=== PATIENT | male | born 1980 | race Caucasian/White ===

== ENCOUNTER 2019-12-19 12:58 | Emergency (ER) | payer BC ==
[2019-12-19 13:27] VITALS: BP 122/80
--- NOTE | 2019-12-19 14:07 | UC ---
Complaint Male HPI - HPI Summary HPI Summary: 39 yo man with history of "shy bladder", being evaluated by Dr. Warner. Recent normal cystoscopy aside from mild BPH and use of low dose cialis was recommended, which he declined at the time. apparetnly he does have a residual urine, but he does not know how significant an issue this is. While away this past week visiting the family of his , he found that his symptoms were much more severe, with considerable discomfort due to his inability to pass urine. He does not have dysuria, but does have some bladder pressure. He has not had a fever. Occasionally uses benadryl for sleep and we discussed that use could exacerbate the problem. No history of renal stones. Reviewed that today's urine does not show evidence of infection, and he is concerne due to upcoming week of travel. 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 - here with his Onset/Duration: Gradual Onset, Lasting Weeks Timing: Intermittent, Lasting Minutes Severity Initially: Moderate Severity Currently: Moderate Pain Intensity: 2 Location: Suprapubic Aggravating Factor(s): Straining Alleviating Factor(s): Nothing - Risk Factors Testicular Torsion: Negative - Allergies/Home Medications Allergies/Adverse Reactions: Allergies Allergy/AdvReac Type Severity Reaction Status Date / Time No Known Allergies Allergy Verified 12/19/19 13:27 Home Medications: Home Medications Multivitamin [Multivitamins] 1 cap PO DAILY 12/28/13 [History Confirmed 12/19/19 ] Bacillus Coagulans [Ra Probiotic Gummies] 1 chw PO DAILY 05/29/18 [History Confirmed 12/19/19] Ibuprofen TAB* [Motrin TAB* 400 MG] 400 mg PO Q6H PRN 05/29/18 [History Confirmed 12/19/19] Melatonin [Meladox] 3 - 10 mg PO BEDTIME PRN 05/29/18 [History Confirmed ] diPHENhydraMINE PO* [Benadryl PO 50 MG CAP*] 50 mg PO BEDTIME PRN 05/29/18 [ History Confirmed 12/19/19] Acetaminophen TAB* [Tylenol TAB*] 975 mg PO Q6H PRN 12/19/19 [History Confirmed 12/19/19] Methylcellulose [Fiber Therapy] 500 mg PO TID 12/19/19 [History Confirmed ] Sulfamethox/Trimethoprim DS* [Bactrim DS 800/160 TAB*] 1 tab PO BID #14 tab 11/08 [Rx] Tadalafil [Cialis] 5 mg PO DAILY #14 tab 12/19/19 [Rx] PMH/Surg Hx/FS Hx/Imm Hx - Additional Past Medical History Additional PMH: HPV with hx of perianal condyloma Previously Healthy: Yes Psychological History: Anxiety - history of OCD - Surgical History Surgical History: Yes Surgery Procedure, Year, and Place: Anal surgery. RIGHT KNEE SCOPING - Family History Known Family History: Positive: Other - NO hx of CA prostate or bladder concerns - Social History Occupation: Employed Full-time Lives: With Family Alcohol Use: None Substance Use Type: None Smoking Status (MU): Never Smoked Tobacco Have You Smoked in the Last Year: No Review of Systems All Other Systems Reviewed And Are Negative: Yes Constitutional: Positive: Negative Skin: Positive: Negative Eyes: Positive: Negative ENT: Positive: Negative Respiratory: Positive: Negative Cardiovascular: Positive: Other - no hx of hypotension or cardiovascular disease. Genitourinary: Positive: Urgency, Other - low pelvic pain Motor: Positive: Negative Neurovascular: Positive: Negative Musculoskeletal: Positive: Negative Neurological/Mental Status: Positive: Negative Psychological: Positive: Anxious - hx of anxiety and OCD, without a good response to SSRI's in the past Is Patient Immunocompromised?: No Physical Exam Triage Information Reviewed: Yes Appearance: Well-Appearing, No Pain Distress Vital Signs: Initial Vital Signs Temp 98.0 F 12/19/19 13:21 Pulse 72 12/19/19 13:21 Resp 16 12/19/19 13:21 BP 122/80 12/19/19 13:21 Pulse Ox 100 12/19/19 13:21 ENT: Positive: Normal ENT inspection Neck: Positive: Supple, Nontender, No Lymphadenopathy Respiratory: Positive: Lungs clear Cardiovascular: Positive: RRR Abdomen Description: Positive: Nontender, No Organomegaly, Soft, Other: - mild tenderness suprapubic area. Negative: CVA Tenderness (R), CVA Tenderness (L), Distended, Guarding Musculoskeletal Exam: Normal Neurological Exam: Normal Psychological Exam: Other - anxious mood and affect Skin Exam: Normal Diagnostics - Laboratory Lab Results: UA normal, without WBC or RBC's on chemstrip. Complaint Male Course/Dx - Course Course Of Treatment: Discussed at length and advised follow up with Dr. Warner and with his primary care provider, Remigio Conway. Discussed that rx for cialis is medication which needs to be managed, but that a 2 week supply could be started, pending review with Dr. Warner. Also advised that medication might need prior authorization. If this is the case, cannot be initiated from [facility]. Reviewed risks, benefits, side effects. - Differential Dx/Diagnosis Differential Diagnosis/HQI/PQRI: Ureteral Calculi, Urinary Tract Infection, Other - urinary retention, BPH Provider Diagnosis: Urinary retention Discharge ED - Sign-Out/Discharge Documenting (check all that apply): Patient Departure All imaging exams completed and their final reports reviewed: No Studies - Discharge Plan Condition: Stable Disposition: HOME Prescriptions: Sulfamethox/Trimethoprim DS* [Bactrim DS 800/160 TAB*] 1 tab PO BID #14 tab Tadalafil [Cialis] 5 mg PO DAILY #14 tab Patient Education Materials: Urinary Retention in Men (ED), Enlarged Prostate ( BPH) (ED) Referrals: Remigio Conway, [facility] [Primary Care Provider] - Additional Instructions: As reviewed, you will begin a trial of Cialis for relief of bladder symptoms. The most comoon side effects are abdominal bloating and bowel change, mild dizziness. The medication can be stopped if side effects are troublesome. Prior authorization might be needed. Check in with your physical therapist about trying pelvic floor PT. - Billing Disposition and Condition Condition: STABLE Disposition: Home
--- NOTE | 2019-12-21 15:48 | UC ---
- Progress Note Progress Note: Urine culture with no growth. Please make sure pt has appt with Urology for his symptoms. Continue anbx Course/Dx - Diagnoses Provider Diagnoses: Urinary retention Discharge ED - Sign-Out/Discharge Documenting (check all that apply): Post-Discharge Follow Up All imaging exams completed and their final reports reviewed: No Studies - Discharge Plan Condition: Stable Disposition: HOME Prescriptions: Sulfamethox/Trimethoprim DS* [Bactrim DS 800/160 TAB*] 1 tab PO BID #14 tab Tadalafil [Cialis] 5 mg PO DAILY #14 tab Patient Education Materials: Urinary Retention in Men (ED), Enlarged Prostate ( BPH) (ED) Referrals: Remigio Conway, [facility] [Primary Care Provider] - Additional Instructions: As reviewed, you will begin a trial of Cialis for relief of bladder symptoms. The most comoon side effects are abdominal bloating and bowel change, mild dizziness. The medication can be stopped if side effects are troublesome. Prior authorization might be needed. Check in with your physical therapist about trying pelvic floor PT. - Billing Disposition and Condition Condition: STABLE Disposition: Home
== END 2019-12-19 15:06 | disposition home or self-care (01) ==
LOC: UCEAST 12:58
DX: R33.9 Retention of urine, unspecified (principal); F41.9 Anxiety disorder, unspecified
CPT/HCPCS: 81003; 87086; 99212; G0463